=== PATIENT | male | born 2000 | race Caucasian/White ===

== ENCOUNTER 2019-11-11 20:08 | Emergency (ER) | payer OTHER ==
[2019-11-11 20:25] VITALS: BP 104/66; PULSE 85; TEMP 98.1; BMI 20.9
--- NOTE | 2019-11-11 21:45 | PDOC ---
Documentation entered by Brinda Mishra SCRIBE, acting as scribe for Chau Cisse MD. Chau Cisse MD: This documentation has been prepared by the varshaibe, Brinda Mishra SCRIBE, under my direction and personally reviewed by me in its entirety. I confirm that the documentation accurately reflects all work, treatment, procedures, and medical decision making performed by me. History of Present Illness - General Chief Complaint: Injury Stated Complaint: LEFT EYELID LACERATION History Source: Patient Exam Limitations: No Limitations - History of Present Illness Initial Comments: 11/11/19 20:30 The patient is a 19-year-old male who presents to the emergency department with a left eyelid laceration. The patient reports he was playing basketball when he was kneed by another player on his left eyelid, sustaining a laceration to the eyelid. Denies any vision changes. The patient reports following up at [facility] for the injury, who sent the patient to the ER for possible stitches. PAST MEDICAL HISTORY: no significant history PAST SURGICAL HISTORY: no significant history FAMILY HISTORY: no pertinent history SOCIAL HISTORY: Pt lives with family and is a student. MEDICATIONS: reviewed ALLERGIES: As per nursing notes PCP: Skip Horn. Review of system: General: No fevers or chills, no weakness, no weight loss HEENT: No change in vision. No sore throat. No ear pain CardioVascular: No chest pain or shortness of breath Respiratory:No cough, or wheezing. Gastrointestinal: no nausea, vomiting, diarrhea or constipation, No rectal bleeding Genitourinary: No dysuria, hematuria, or frequency Musculoskeletal: No joint or muscle pain or swelling Neurologic: No headache, vertigo, dizziness or loss of consciousness Psychiatric: nor depression Skin: +left eyelid laceration. No rashes or easy bruising Endocrine: no increased thirst or abnormal weight change Allergic: no skin or latex allergy All other systems reviewed and normal Physical exam: GENERAL: The patient is awake, alert, and fully oriented, in no acute distress. HEAD: Normal with no signs of trauma. EYES: Pupils equal, round and reactive to light, extraocular movements intact, sclera anicteric, conjunctiva clear. EXTREMITIES: Normal range of motion, no edema. NEUROLOGICAL: Normal speech, normal gait. PSYCH: Normal mood, normal affect. SKIN: +2cm superficial laceration to the left upper lateral eyelid, no bony tenderness. Warm, Dry, normal turgor, no rashes or lesions noted. Assessment and plan: This is a 19-year-old male who comes in complaining of a laceration that he sustained during a basketball game. Patient has approximately a 2 cm superficial laceration of the left upper lateral eyelid. Procedure note laceration repair Laceration was cleaned and then closed with Dermabond patient tolerated well Patient discharged home with his father 11/11/19 20:38 Past History - Medical History Allergies/Adverse Reactions: Allergies Allergy/AdvReac Type Severity Reaction Status Date / Time No Known Allergies Allergy Verified 11/11/19 20:10 Home Medications: Ambulatory Orders Triamcinolone Acetonide [Nasacort] 1 spray IH ASDIR 11/11/19 Discharge - Discharge Information Problems reviewed: Yes Clinical Impression/Diagnosis: Eyelid laceration Qualifiers: Encounter type: initial encounter Laterality: left Qualified Code(s): S01.112A - Laceration without foreign body of left eyelid and periocular area, initial encounter Condition: Stable Disposition: HOME - Admission No - Follow up/Referral Referrals: Skip Manning [Primary Care Provider] - - Patient Discharge Instructions Patient Printed Discharge Instructions: DI for Laceration Repair With Dermabond Additional Instructions: Return to the emergency department immediately with ANY new, persistent or worsening symptoms. Continue any medications as previously prescribed by your physician. You should follow up with your primary doctor as soon as possible regarding today's emergency department visit. . Please make sure your doctor reviews the results of your emergency evaluation. Thank you for coming to the Emergency Department today for your care. It was a pleasure to see you today. Please note that your evaluation is INCOMPLETE until you follow-up with your doctor. Read over and follow the Dermabond instructions Do not use any petroleum based products on the glue as it will cause it to come off early - Post Discharge Activity
== END 2019-11-11 20:39 | disposition home or self-care (01) ==
LOC: FER 20:08
DX: S01.112A Laceration without foreign body of left eyelid and periocular area, initial encounter (principal)
CPT/HCPCS: 99282-25